=== PATIENT | male | born 1960 | race Hispanic/Latino ===

== ENCOUNTER 2023-02-11 13:01 | Emergency (ER) | payer MEDICARE ==
[2023-02-11] MEDS ORDERED: Ketorolac Tromethamine 30 MG/ML VIAL ONE (18:31)
== END 2023-02-11 21:38 | disposition home or self-care (01) ==
LOC: CSHERS 13:01
DX: M54.50 Low back pain, unspecified (principal); K21.9 Gastro-esophageal reflux disease without esophagitis; E78.5 Hyperlipidemia, unspecified; F17.290 Nicotine dependence, other tobacco product, uncomplicated
CPT/HCPCS: 72148; 96372; J1885

== ENCOUNTER 2023-02-26 14:38 | Inpatient (IN) | payer MEDICARE, OTHER ==
[2023-02-26] MEDS ORDERED: Naloxone HCl 0.4 mg/ml Vial ONE ×2 (15:05→15:11)
[2023-02-26 15:30] LABS: #Basophils 0.1 10x3/uL (0.0-0.2); #Eosinphils 0.2 10x3/uL (0.0-0.5); #Monocytes 0.8 10x3/uL (0.0-1.1); #Neutrophils 6.8 10x3/uL (1.5-8.4); %Basophils 0.5 % (0.0-2.0); %Monocytes 8.1 % (0.0-10.0); %Neutrophils 69.8 % (40.0-75.0); Hematocrit 45.9 % (38.8-50.0); Hemoglobin 15.6 g/dL (13.5-17.5); Mean Corpuscular Hemoglobin 32.3 pg (27.0-33.0); Mean Platelet Volume 10.5 fl (7.4-10.4); Platelet Count 183 10x3/uL (150-450); RBC Distribution Width 12.6 % (11.5-14.5); Red Blood Cell (RBC) Count 4.83 10x6/uL (4.32-5.72); White Blood Cell (WBC) Count 9.8 10x3/uL (3.5-10.5)
[2023-02-26 15:36] LABS: Acetaminophen Less than 10 mcg/mL (10.0-30.0); Alcohol Less than 10.0 mg/dL (Less than 10); Salicylate Less than 8.0 mg/dL (15.0-30.0)
[2023-02-26 15:38] LABS: INR-International Normal Ratio 1.1; PTT 38.1 sec (22.0-33.0); Prothrombin Time 11.9 sec (9.5-12.1)
[2023-02-26 15:45] LABS: ALT (SGPT) 45 U/L (8-55); AST (SGOT) 40 U/L (5-34); Albumin 4.5 g/dL (3.4-4.8); Alkaline Phosphatase 77 U/L (40-110); BUN (Urea Nitrogen) 14 mg/dL (8.4-25.7); Calc. Creatinine Clearance 0 mL/min (70-130); Calcium 10.5 mg/dL (7.8-10.44); Carbon Dioxide 25 mmol/L (23-31); Estimated GFR 53; Globulin 2.6 g/dL (2.4-3.5); Glucose 131 mg/dL (80-115); Lipase 9 U/L (8-78); Magnesium 2.1 mg/dL (1.6-2.6); Protein, Total 7.1 g/dL (5.8-8.1); Troponin I Less than 0.010 ng/mL (< 0.028)
[2023-02-26 15:46] LABS: Chloride 107 mmol/L (98-107); Potassium 4.3 mmol/L (3.5-5.1); Sodium 143 mmol/L (136-145)
[2023-02-26 15:54] LABS: Anion Gap 15 mmol/L (10-20)
[2023-02-26 15:56] LABS: Bilirubin Neg (Negative); Blood, Urine 10 (Negative); Clarity Clear (Clear); Glucose, Urine (Dipstick) Normal (Negative); Ketone, Urine Negative (Negative); Leukocyte Negative (Negative); Nitrite Negative (Negative); Protein, Urine (Dipstick) 15 mg/dl (Neg-Trace); Urobilinogen Normal mg/dL (Less than 2)
[2023-02-26 16:03] LABS: RBC/HPF 0-3 HPF (0-3)
[2023-02-26 16:04] LABS: Amphetamine Not Detected (NotDetected); Bacteria/HPF Rare-Few HPF (None Seen); Barbiturates Screen Not Detected (NotDetected); Benzodiazepine Screen Not Detected (NotDetected); CAUTI Indications for Culture Pelvic or flank pain; Cocaine Metabolite Screen Not Detected (NotDetected); Methadone Not Detected (NotDetected); Methamphetamine Not Detected (NotDetected); Opiate Screen Not Detected (NotDetected); Oxycodone Screen Not Detected (NotDetected); Phencyclidine (PCP) Not Detected (NotDetected); Squamous Epithelial 0-3 HPF (0-3); THC/Cannabinoid Screen Not Detected (NotDetected); Tricyclic Screen Detected (NotDetected); WBC/HPF 0-3 HPF (0-3)
[2023-02-26 16:05] LABS: Urine Culture Reflex No No
[2023-02-26] MEDS ORDERED: NOREPINEPHRINE 8 MG/250 ML-D5W 250 ML ONE (16:16)
[2023-02-26] MEDS ORDERED: Acetaminophen 650 MG Suppository PR PRN (17:21)
[2023-02-26] MEDS ORDERED: Acetaminophen 325 MG TAB PO PRN (17:21)
[2023-02-26] MEDS ORDERED: Ondansetron PF 4 MG/2 ML Vial IVP PRN (17:21)
[2023-02-26] MEDS ORDERED: Bisacodyl 5 MG TAB PO PRN (17:21)
[2023-02-26] MEDS ORDERED: Senokot S 8.6-50 MG TAB PO PRN (17:21)
[2023-02-26 18:12] LABS: SARS-CoV-2 NAA Rapid Test Not Detected (NotDetected)
[2023-02-26] MEDS ORDERED: Dexamethasone 10 MG/ML VIAL ONE (19:17)
[2023-02-26 19:32] LABS: Phosphorus 3.8 mg/dL (2.3-4.7)
[2023-02-26 19:40] LABS: Troponin I Less than 0.010 ng/mL (< 0.028)
[2023-02-26] MEDS ORDERED: Dexamethasone 4 mg/ml Vial SLOW IVP SCH (20:00)
[2023-02-26] MEDS ORDERED: Cosyntropin 250 MCG VIAL SLOW IVP SCH (21:00)
[2023-02-26] MEDS: Lactated Ringer's 1,000 ML IV SCH (21:55)
[2023-02-26] MEDS: Atorvastatin Calcium 40 MG TAB PO SCH (22:06)
[2023-02-26] MEDS: Nicotine 14 MG PATCH TD SCH (22:06)
[2023-02-26] MEDS: Famotidine/PF 20 mg/2ml Vial SLOW IVP SCH (22:08)
[2023-02-26 22:12] LABS: Troponin I Less than 0.010 ng/mL (< 0.028)
[2023-02-27 06:24] LABS: #Monocytes 0.1 10x3/uL (0.0-1.1); #Neutrophils 5.8 10x3/uL (1.5-8.4); %Basophils 0.2 % (0.0-2.0); %Lymphocytes 10.4 % (18.0-47.0); %Monocytes 1.8 % (0.0-10.0); %Neutrophils 87.1 % (40.0-75.0); Hematocrit 40.2 % (38.8-50.0); Hemoglobin 13.8 g/dL (13.5-17.5); Mean Corpuscular HGB CONC 34.3 g/dL (32.0-36.0); Mean Corpuscular Hemoglobin 32.5 pg (27.0-33.0); Mean Corpuscular Volume 94.8 fl (81.2-95.1); Mean Platelet Volume 9.6 fl (7.4-10.4); Platelet Count 157 10x3/uL (150-450); RBC Distribution Width 12.4 % (11.5-14.5); Red Blood Cell (RBC) Count 4.24 10x6/uL (4.32-5.72); White Blood Cell (WBC) Count 6.6 10x3/uL (3.5-10.5)
[2023-02-27] MEDS: Aspirin 81 mg Enteric Coated Tablet PO SCH ×2 (08:06→08:13)
[2023-02-27] MEDS: Famotidine/PF 20 mg/2ml Vial SLOW IVP SCH ×2 (08:07→23:12)
[2023-02-27 08:54] LABS: ALT (SGPT) 33 U/L (8-55); AST (SGOT) 27 U/L (5-34); Albumin 3.7 g/dL (3.4-4.8); Alkaline Phosphatase 59 U/L (40-110); Anion Gap 12 mmol/L (10-20); BUN (Urea Nitrogen) 13 mg/dL (8.4-25.7); Bilirubin, Total 0.5 mg/dL (0.2-1.2); Calc. Creatinine Clearance 109 mL/min (70-130); Calcium 9.2 mg/dL (7.8-10.44); Carbon Dioxide 24 mmol/L (23-31); Chloride 106 mmol/L (98-107); Estimated GFR 98; Globulin 2.1 g/dL (2.4-3.5); Glucose 124 mg/dL (80-115); Potassium 4.3 mmol/L (3.5-5.1); Protein, Total 5.8 g/dL (5.8-8.1); Sodium 138 mmol/L (136-145)
[2023-02-27] MEDS: Lactated Ringer's 1,000 ML IV SCH (09:28)
[2023-02-27] MEDS ORDERED: Cyclobenzaprine 10 MG TAB PO PRN (17:53)
[2023-02-27] MEDS ORDERED: Lisinopril 10 MG TAB PO SCH (20:00)
[2023-02-27] MEDS ORDERED: QUEtiapine 100 MG TAB PO SCH (21:00)
[2023-02-27] MEDS: Nicotine 14 MG PATCH TD SCH (21:45)
[2023-02-27] MEDS: Apixaban 5 MG TAB PO SCH (23:13)
[2023-02-27] MEDS: Atorvastatin Calcium 40 MG TAB PO SCH (23:13)
[2023-02-28] MEDS ORDERED: hydrOXYzine 25 MG TAB PO SCH (03:30)
[2023-02-28 06:05] VITALS: BMI 29.1
[2023-02-28] MEDS ORDERED: Lisinopril 10 MG TAB PO SCH (09:00)
[2023-02-28] MEDS: Apixaban 5 MG TAB PO SCH (10:00)
[2023-02-28] MEDS: Aspirin 81 mg Enteric Coated Tablet PO SCH (10:00)
[2023-02-28] MEDS: Famotidine/PF 20 mg/2ml Vial SLOW IVP SCH (10:00)
[2023-02-28 10:37] LABS: ALT (SGPT) 30 U/L (8-55); AST (SGOT) 26 U/L (5-34); Alkaline Phosphatase 58 U/L (40-110); Anion Gap 14 mmol/L (10-20); BUN (Urea Nitrogen) 10 mg/dL (8.4-25.7); Bilirubin, Total 0.5 mg/dL (0.2-1.2); Calc. Creatinine Clearance 111 mL/min (70-130); Calcium 9.1 mg/dL (7.8-10.44); Carbon Dioxide 23 mmol/L (23-31); Chloride 106 mmol/L (98-107); Estimated GFR 98; Globulin 2.2 g/dL (2.4-3.5); Glucose 103 mg/dL (80-115); Potassium 3.5 mmol/L (3.5-5.1); Protein, Total 6.2 g/dL (5.8-8.1); Sodium 139 mmol/L (136-145)
[2023-02-28 10:57] LABS: #Eosinphils 0.1 10x3/uL (0.0-0.5); #Monocytes 0.7 10x3/uL (0.0-1.1); %Basophils 0.4 % (0.0-2.0); %Eosinophils 1.1 % (0.0-6.0); %Lymphocytes 25.5 % (18.0-47.0); %Monocytes 9.4 % (0.0-10.0); %Neutrophils 63.3 % (40.0-75.0); Hematocrit 39.5 % (38.8-50.0); Hemoglobin 13.4 g/dL (13.5-17.5); Mean Corpuscular HGB CONC 33.9 g/dL (32.0-36.0); Mean Corpuscular Hemoglobin 32.4 pg (27.0-33.0); Mean Corpuscular Volume 95.6 fl (81.2-95.1); Mean Platelet Volume 10.1 fl (7.4-10.4); Platelet Count 157 10x3/uL (150-450); RBC Distribution Width 12.8 % (11.5-14.5); Red Blood Cell (RBC) Count 4.13 10x6/uL (4.32-5.72); White Blood Cell (WBC) Count 7.9 10x3/uL (3.5-10.5)
[2023-02-28 12:07] VITALS: BP 163/87; TEMP 98
== END 2023-02-28 13:02 | disposition home or self-care (01) | DRG 643 ==
LOC: CSHERS 14:38 → CSHICU 20:49 → CSHTELE 02-27 18:57
PROVIDERS: ADMIT Family Medicine; ATTEND Family Medicine
PROC: 5A09357 Assistance with Respiratory Ventilation, Less than 24 Consecutive Hours, Continuous Positive Airway Pressure (ICD-10-PCS; principal; 2023-02-27)
DX: E27.40 Unspecified adrenocortical insufficiency (principal); G92.8 Other toxic encephalopathy; N17.9 Acute kidney failure, unspecified; G89.29 Other chronic pain; M19.90 Unspecified osteoarthritis, unspecified site; I10 Essential (primary) hypertension; F17.210 Nicotine dependence, cigarettes, uncomplicated; I95.9 Hypotension, unspecified; I25.10 Atherosclerotic heart disease of native coronary artery without angina pectoris; I45.10 Unspecified right bundle-branch block; Z20.822 Contact with and (suspected) exposure to COVID-19; F10.10 Alcohol abuse, uncomplicated; Z95.5 Presence of coronary angioplasty implant and graft; Z98.890 Other specified postprocedural states; T50.915A Adverse effect of multiple unspecified drugs, medicaments and biological substances, initial encounter
CPT/HCPCS: 36415; 36416; 70450; 71045; 80053; 80306; 80307; 80400; 81001; 82140; 82533; 83605; 83690; 83735; 84100; 84443; 84484; 85025; 85610; 85730; 86140; 93005; 93306; 94660; 94760; 94762; J0834; J1100; J1650; J2310; J7120; J8540; S0028